=== PATIENT | male | born 1995 | race Hispanic/Latino ===

== ENCOUNTER 2019-03-01 07:19 | Emergency (ER) | payer SELFPAY ==
[2019-03-01] MEDS ORDERED: AZITHROMYCIN 250 MG TABLET PO ONE (07:39)
[2019-03-01] MEDS ORDERED: CEFTRIAXONE SODIUM 1 GM ONE (07:39)
[2019-03-01 07:40] LABS: APPEARANCE,URINE Clear (CLEAR); BILIRUBIN,URINE Negative (NEGATIVE); COLOR,URINE Yellow (YELLOW); GLUCOSE, URINE (UA) Negative (NEGATIVE); KETONES,URINE Negative (NEGATIVE); LEUKOCYTE ESTERASE ,URINE Moderate (NEGATIVE); NITRATE,URINE Negative (NEGATIVE); OCCULT BLOOD,URINE Negative (NEGATIVE); PH,URINE 6.5 (5.0-8.0); PROTEIN,URINE Negative (NEGATIVE)
[2019-03-01] MEDS ORDERED: LIDOCAINE HCL MPF 1% 5ML VIAL ONE (07:40)
[2019-03-01 08:20] LABS: BACTERIA,URINE Rare /HPF (None Seen); RBC,URINE 0-1 /HPF (0-1); SQUAMOUS EPITHELIAL CELL,UR Rare /HPF (0-2); WBC,URINE 26-50 /HPF (0-1)
== END 2019-03-01 08:32 | disposition home or self-care (01) ==
LOC: EDH 07:19
DX: N34.2 Other urethritis (principal); Z98.890 Other specified postprocedural states
CPT/HCPCS: 81001; 87486; 87797; 96372; 99284; J0696; J3490